=== PATIENT | female | born 1970 | race Caucasian/White ===

== ENCOUNTER → 2025-02-01 07:41 | Outpatient (REF) | payer BC, SELFPAY | LOC: EMG 07:41 | PROVIDERS: ATTENDING PHYSICIAN Orthopaedic Surgery; FAMILY PHYSICIAN Family Medicine | DX: R20.0 Anesthesia of skin (principal); G56.01 Carpal tunnel syndrome, right upper limb | CPT/HCPCS: 95886; 95909 ==